=== PATIENT | female | born 1990 | race Caucasian/White ===

== ENCOUNTER 2022-02-08 04:39 | Emergency (ER) | payer OTHER ==
[~2022-02-08] VITALS: Ht 170.2 cm; Wt 72.4 kg
[2022-02-08] MEDS ORDERED: UNIS25TA3 PO (04:55)
[2022-02-08] MEDS ORDERED: SYNT75TA PO (04:55)
[2022-02-08] MEDS ORDERED: PREN1CHW6 PO (04:56)
[2022-02-08] MEDS ORDERED: NS 1,000 ML IV ONE (05:10)
[2022-02-08] MEDS ORDERED: ONDANSETRON 4MG/2ML VIAL IV ONE (05:10)
[2022-02-08 05:42] LABS: BASO % 0.5 % (0.0-1.0); EOS # 0.2 10^3/uL (0.0-0.5); EOS % 1.9 % (0.0-3.0); HEMATOCRIT 39.1 % (36.0-47.0); HEMOGLOBIN 13.4 g/dl (12.0-15.5); LYMPH # 1.6 10^3/uL (1.5-5.0); LYMPH % 18.5 % (24.0-44.0); MEAN CORPUSCULAR HEMOGLOBIN 31.4 pg (27.0-33.0); MEAN CORPUSCULAR HGB CONC 34.3 g/dl (32.0-36.5); MEAN CORPUSCULAR VOLUME 91.6 fl (80.0-96.0); MONO # 0.5 10^3/uL (0.0-0.8); NEUTROPHILS # 6.4 10^3/uL (1.5-8.5); NEUTROPHILS % 72.6 % (36.0-66.0); PLATELET COUNT, AUTOMATED 201 10^3/uL (150-450); RED BLOOD COUNT 4.27 10^6/uL (4.00-5.40); WHITE BLOOD COUNT 8.9 10^3/uL (4.0-10.0)
[2022-02-08 06:33] LABS: ALBUMIN 3.9 GM/DL (3.2-5.2); ALT/SGPT 23 U/L (12-78); BILIRUBIN,TOTAL 0.4 MG/DL (0.2-1.0); BLOOD UREA NITROGEN 10 MG/DL (7-18); CALCIUM LEVEL 9.1 MG/DL (8.5-10.1); CARBON DIOXIDE LEVEL 27 MEQ/L (21-32); CHLORIDE LEVEL 105 MEQ/L (98-107); CREATININE FOR GFR 0.64 MG/DL (0.55-1.30); FREE T4 1.16 NG/DL (0.76-1.46); GLOMERULAR FILTRATION RATE > 60.0 (>60); GLUCOSE, FASTING 89 MG/DL (70-100); HCG, SERUM QUANTITATIVE 52097 MIU/ML; POTASSIUM SERUM 4.4 MEQ/L (3.5-5.1); SODIUM LEVEL 137 MEQ/L (136-145); TOTAL PROTEIN 7.3 GM/DL (6.4-8.2)
[2022-02-08] MEDS ORDERED: METOCLOPRAMIDE INJ 10MG/2ML VIAL (J2765 PER 1) IV ONE (06:40)
[2022-02-08] MEDS ORDERED: PROM25TA12 PO (08:15)
[2022-02-08] MEDS ORDERED: PROMETHAZINE INJ 25 MG/ML VIAL (J2550) IV ONE (08:15)
[2022-02-08] MEDS ORDERED: ONDA4TAB6 PO (08:15)
[2022-02-08] MEDS ORDERED: REGL5TAB2 PO (08:15)
[2022-02-08 08:58] VITALS: BP 117/61
[2022-02-08 12:55] LABS: FREE T3 2.6 PG/ML (2.2-4.0)
== END 2022-02-08 09:02 | disposition home or self-care (01) ==
LOC: M ED 04:39
DX: O21.1 Hyperemesis gravidarum with metabolic disturbance (principal); Z3A.01 Less than 8 weeks gestation of pregnancy
CPT/HCPCS: 80053; 81001; 84439; 84443; 84481; 84702; 85025; 87086; 96361; 96375; 99284; J2405; J2765

== ENCOUNTER 2022-10-04 09:30 | Inpatient (IN) | payer OTHER ==
[2022-10-04] VITALS (33 sets, daily range): BP systolic 120–163; BP diastolic 66–100
[~2022-10-04] VITALS: Ht 170.2 cm; Wt 94.3 kg
[~2022-10-04 09:30] MED LIST: ONDA4TAB6 PO; PREN1CHW6 PO; PROM25TA12 PO; REGL5TAB2 PO; SYNT75TA PO; UNIS25TA3 PO
[2022-10-04] MEDS ORDERED: LIDOCAINE 1% MDV 20ML VIAL INFIL PRN (10:15)
[2022-10-04] MEDS ORDERED: PENICILLIN G POTASSIUM 5 MU IV 5 MU in D5W MINI-BAG PLUS 100 ML IV ONE (10:15)
[2022-10-04] MEDS ORDERED: METHYLERGONOVINE MALEATE 0.2 MG/ML VIAL (J2210) IM PRN (10:15)
[2022-10-04] MEDS ORDERED: OXYTOCIN DRIP 30 UNITS in IV 1 EA IV PRN ×6 (10:15)
[2022-10-04] MEDS ORDERED: TRANEXAMIC ACID INJection 1,000 MG in NS 100 ML IV PRN (10:15)
[2022-10-04] MEDS ORDERED: LACTATED RINGER'S 1000 ML IV STA (10:24)
[2022-10-04] MEDS ORDERED: VALT1TAB PO (10:54)
[2022-10-04] MEDS ORDERED: HOME MED LIST COMPLETE! XX SCH (10:55)
[2022-10-04 11:31] LABS: HEMATOCRIT 35.8 % (36.0-47.0); MEAN CORPUSCULAR HEMOGLOBIN 31.3 pg (27.0-33.0); MEAN CORPUSCULAR HGB CONC 33.5 g/dl (32.0-36.5); MEAN CORPUSCULAR VOLUME 93.2 fl (80.0-96.0); PLATELET COUNT, AUTOMATED 200 10^3/uL (150-450); RED BLOOD COUNT 3.84 10^6/uL (4.00-5.40); WHITE BLOOD COUNT 11.5 10^3/uL (4.0-10.0)
[2022-10-04] MEDS: LR 500 ML IV PRN ×2 (11:53→13:38)
[2022-10-04] MEDS ORDERED: NALOXONE INJ 0.4MG/1ML VIAL (J2310 PER 1MG) IV PRN (12:25)
[2022-10-04] MEDS ORDERED: diphenhydrAMINE 50MG/ML VIAL IV PRN (12:25)
[2022-10-04] MEDS ORDERED: EPIDURAL/PCA KEYS XX PRN (12:25)
[2022-10-04] MEDS ORDERED: ePHEDrine SULFATE 25 MG/5 ML(5MG/ML) SYRINGE IVP PRN (12:25)
[2022-10-04] MEDS ORDERED: FENTANYL/ROPIVACAINE/NACL BAG 100 ML EPIDURAL SCH (12:25)
[2022-10-04] MEDS: ONDANSETRON 4MG 2ML VIAL IV PRN ×2 (14:18→19:30)
[2022-10-04] MEDS ORDERED: PEN G POT 3,000,000 UNIT/50 ML 3,000,000 UNIT in IV 1 EA IV SCH (17:00)
[2022-10-04] MEDS ORDERED: OXYTOCIN DRIP 30 UNITS in IV 1 EA IV SCH ×5 (17:40→18:50)
[2022-10-04] MEDS ORDERED: ACETAMINOPHEN 500 MG TAB PO PRN (18:50)
[2022-10-04] MEDS ORDERED: DOCUSATE SODIUM 100MG CAPSULE PO PRN (18:50)
[2022-10-04] MEDS ORDERED: METHYLERGONOVINE MALEATE 0.2 MG TAB PO PRN (18:50)
[2022-10-04] MEDS ORDERED: ACETAMINOPHEN TAB 650MG DOSE (2X325MG) PO PRN (18:50)
[2022-10-04] MEDS ORDERED: RHOGAM 300 MCG (1500 IU) INJ (J2790) IM SCH (18:50)
[2022-10-04] MEDS ORDERED: IBUPROFEN 600MG TAB PO PRN (18:50)
[2022-10-04] MEDS ORDERED: ANUSOL HC CREAM 30GM TOP PRN (18:50)
[2022-10-04] MEDS ORDERED: DIBUCAINE 1% OINTMENT 30GM TOP PRN (18:50)
[2022-10-04] MEDS: IBUPROFEN 800 MG TAB PO PRN (19:18)
[2022-10-05] MEDS: ONDANSETRON 4MG 2ML VIAL IV PRN (05:54)
[2022-10-05] MEDS: IBUPROFEN 800 MG TAB PO PRN ×3 (05:55→22:34)
[2022-10-05 06:00] VITALS: BP 120/71
[2022-10-05 06:44] LABS: HEMATOCRIT 30.8 % (36.0-47.0); HEMOGLOBIN 10.4 g/dl (12.0-15.5); MEAN CORPUSCULAR HEMOGLOBIN 31.7 pg (27.0-33.0); MEAN CORPUSCULAR HGB CONC 33.8 g/dl (32.0-36.5); MEAN CORPUSCULAR VOLUME 93.9 fl (80.0-96.0); PLATELET COUNT, AUTOMATED 184 10^3/uL (150-450); RED BLOOD COUNT 3.28 10^6/uL (4.00-5.40); WHITE BLOOD COUNT 11.2 10^3/uL (4.0-10.0)
[2022-10-05] MEDS: PRENATAL VITAMINS CHEWABLE TABLET PO SCH (08:11)
[2022-10-06 06:00] VITALS: BP 131/60
[2022-10-06] MEDS: IBUPROFEN 800 MG TAB PO PRN (08:07)
[2022-10-06] MEDS: PRENATAL VITAMINS CHEWABLE TABLET PO SCH (08:19)
[2022-10-06] MEDS ORDERED: MEASLES,MUMPS,RUBELLA VACCINE INJ (MMR-II) (90707) SC.IMMUN ONE (09:00)
== END 2022-10-06 15:40 | disposition home or self-care (01) | DRG 807 ==
LOC: M LDO 09:30 → M LDI 10:24 → M OBS 21:12
PROVIDERS: ADMIT Advanced Practice Midwife; ATTEND Obstetrics & Gynecology
PROC: 10E0XZZ Delivery of Products of Conception, External Approach (ICD-10-PCS; principal; 2022-10-04)
PROC: 0KQM0ZZ Repair Perineum Muscle, Open Approach (ICD-10-PCS; 2022-10-04)
DX: O48.0 Post-term pregnancy (principal); Z37.0 Single live birth; Z3A.38 38 weeks gestation of pregnancy; O99.284 Endocrine, nutritional and metabolic diseases complicating childbirth; E03.9 Hypothyroidism, unspecified; E06.3 Autoimmune thyroiditis; O99.824 Streptococcus B carrier state complicating childbirth; O70.1 Second degree perineal laceration during delivery; Z79.890 Hormone replacement therapy; Z79.899 Other long term (current) drug therapy